=== PATIENT | female | born 1940 | race Caucasian/White ===

== ENCOUNTER 2019-10-27 06:00 | Outpatient (RCR) | payer MEDICARE, BC, MEDICAID, SELFPAY | END 2019-11-17 23:59 | disposition home or self-care (01) | LOC: WPT 06:00 | PROVIDERS: PCP Physician Assistant Medical; Referring Provider Orthopaedic Surgery; Visit Provider Orthopaedic Surgery | DX: Z96.651 Presence of right artificial knee joint (principal) | CPT/HCPCS: 97110; 97112; 97162 ==

== ENCOUNTER 2019-11-18 06:00 | Outpatient (RCR) | payer MEDICARE, BC, MEDICAID, SELFPAY | END 2019-12-17 23:59 | disposition home or self-care (01) | LOC: WPT 06:00 | PROVIDERS: PCP Physician Assistant Medical; Referring Provider Orthopaedic Surgery; Visit Provider Orthopaedic Surgery | DX: Z47.1 Aftercare following joint replacement surgery (principal); Z96.651 Presence of right artificial knee joint | CPT/HCPCS: 97110; 97112; 97164; 97530 ==

== ENCOUNTER 2019-12-18 06:00 | Outpatient (RCR) | payer MEDICARE, BC, MEDICAID, SELFPAY | END 2020-01-17 23:59 | disposition home or self-care (01) | LOC: WPT 06:00 | PROVIDERS: PCP Physician Assistant Medical; Referring Provider Orthopaedic Surgery; Visit Provider Orthopaedic Surgery | DX: Z47.1 Aftercare following joint replacement surgery (principal); Z96.651 Presence of right artificial knee joint | CPT/HCPCS: 97110 ==

== ENCOUNTER 2020-01-30 13:12 | Outpatient (RCR) | payer MEDICARE, MEDICAID, SELFPAY | END 2020-02-16 23:59 | disposition home or self-care (01) | LOC: WPT 13:12 | PROVIDERS: PCP Physician Assistant Medical; Referring Provider Orthopaedic Surgery; Visit Provider Orthopaedic Surgery | DX: Z47.1 Aftercare following joint replacement surgery (principal); Z96.651 Presence of right artificial knee joint | CPT/HCPCS: 97110 ==